=== PATIENT | female | born 1990 | race Caucasian/White ===

== ENCOUNTER 2021-08-17 04:38 | Inpatient (IN) | payer BC ==
[2021-08-17] VITALS (43 sets, daily range): BP systolic 102–144; BP diastolic 51–90; PULSE 63–103; TEMP 97.6–98.6
[~2021-08-17] VITALS: Ht 160 cm; Wt 77.3 kg
--- NOTE | 2021-08-17 06:15 | NUR ---
0615-Recieved bedside shift report from Sarah,BRENDON. Patient denies pain. Reactive FHR. Updated on plan of care and orders to start pit and pen G per GBS unknown. Verbalized understanding and agreeable with plan. 0645-IV to left hand, blood collected and sent to lab per orders. LR infsuing, see EMAR. Pen G started, See EMAR. 0700-Pitocin at 2mu/min per orders see EMAR. Reviewed consents and signed.
[2021-08-17 07:26] LABS: BASO % 0.4 % (0.0-2.0); EOS # 0.1 K/mm3 (0.0-0.7); EOS % 1.4 % (0.0-4.0); GRAN # 6.6 K/mm3 (1.4-6.5); GRAN % 77.9 % (42.2-75.2); HEMOGLOBIN 12.7 g/dl (12.5-16.0); LYMPH % 12.1 % (20.0-51.0); MEAN CELL VOLUME 98 fl (80.0-100.0); MEAN CORPUSCULAR HEMOGLOBIN 35 pg (27-31); MEAN CORPUSCULAR HGB CONC 36 g/dl (33.0-37.0); MEAN PLATELET VOLUME 12.2 fl (7.4-10.4); MONO # 0.6 K/mm3 (0.1-0.6); MONO % 6.9 % (1.7-9.3); PLATELET COUNT 135 K/mm3 (130-400); RED BLOOD COUNT 3.61 M/mm3 (4.10-5.30); REDCELL DISTRIBUTION WIDTH-CV 13.2 % (11.5-14.5)
[2021-08-17 07:30] LABS: HEMATOCRIT 35.2 % (37.0-47.0)
--- NOTE | 2021-08-17 08:30 | NUR ---
0830-Dr. Villarreal on unit in to see patient. No new orders.
--- NOTE | 2021-08-17 10:40 | NUR ---
1040-Ellison to DD, clear yellow urine return. Hortencia care provied. 1140-Repositioned WR with PB. 1150-IV benadryl given per anesthesia orders for itching. 1245-SVE by /+1
--- NOTE | 2021-08-17 13:45 | NUR ---
1345-SVE by Dr. Villarreal Complete and +2 station. 1350-MD begins pushing with patient. 1430-RN assumes pushing with patient. Moves vertex well. 1440-Dr. Villarreal returns to bedside and assumes pushing with patient. Patient continues to have good effort pushing and is moving vertex. 1528-Spontaneous delivery of head attended by Dr. Villarreal. Loose nuchal x1 reduced by MD. Patient proceeds with pushing and immediately delivers viable male . to mothers abdoment. Cord clamped x2 and cut by FOB. Care of assumed by BRENDON Kinsey. Apgars 8/9/9. 1530-Spontaneous delivery of intact placenta by Dr. Villarreal. [facility] massage firm. Lochia WNL. Pitocin bolus per MD order and protocol. First degree laceration repaired by MD. EBL 300ml. Hortencia care provided. Updated on plan of care and safety.
--- NOTE | 2021-08-17 17:57 | NUR ---
0915-Patient requests Epidural. JAIR Rodriguez notified. 0935-Patient sitting upright for epidural placement. MIGNON Rodriguez to patient room. 0947-Test dose administered by JAIR Rodriguez. Patient tolerated well. VSS. Updated on safety and plan of care. 1015-SVE by Dr. Villarreal who is on unit. 2. Repositioned WL with peanut ball.
--- NOTE | 2021-08-17 18:30 | NUR ---
Report recieved at this time. Up to restroom with off going nurse. Whiteboard updated in room. POC reviewed. remains in room. Visitors coming per pt. Informed to not attempt to ambulate without nursing assistance.
--- NOTE | 2021-08-17 18:30 | NUR ---
1830-Patient up to toilet with assist x1 and wheelchair. Voids 400ml, ximena care assisted. Transferred to room 208. Updated on plan of care and safety. Reported off to BRENDON Nichols
[2021-08-18] VITALS: BP 130/78; PULSE 90; TEMP 97.5
[2021-08-18 04:00] VITALS: BP 124/65; PULSE 85; TEMP 98.3
[2021-08-18 07:30] VITALS: BP 108/58; PULSE 81; TEMP 97.6
--- NOTE | 2021-08-18 09:44 | NUR ---
Initial visit; Parents thanked Assistant Clinical Director for offering congratulations and God's blessings for the of their son. Assistant Clinical Director thanked family for choosing our hospital.
[2021-08-18 11:00] VITALS: BP 128/68; PULSE 85; TEMP 97.5
[2021-08-18 16:00] VITALS: BP 132/81; PULSE 89; TEMP 97.3
[2021-08-18 20:45] VITALS: BP 121/74; PULSE 88; TEMP 98.3
[2021-08-19 07:35] VITALS: BP 119/87; PULSE 106; TEMP 98.4
[2021-08-19] MEDS ORDERED: IBU800 M1 PO (10:33)
--- NOTE | 2021-08-19 14:34 | NUR ---
1430DISCHARGE INSTRUCTIONS REVIEWED WITH PATIENT. PATIENT VERBALIZED UNDERSTANDING. PATIENT TO BOARDER STATUS AT THIS TIME.
== END 2021-08-19 14:30 | disposition home or self-care (01) | DRG 806 ==
LOC: LDRO 04:38 → LDR 05:12 → OB 05:12
PROVIDERS: ADMIT Obstetrics & Gynecology
PROC: 10E0XZZ Delivery of Products of Conception, External Approach (ICD-10-PCS; principal; 2021-08-17)
PROC: 0HQ9XZZ Repair Perineum Skin, External Approach (ICD-10-PCS; 2021-08-17)
PROC: 3E033VJ Introduction of Other Hormone into Peripheral Vein, Percutaneous Approach (ICD-10-PCS; 2021-08-17)
DX: O42.913 Preterm premature rupture of membranes, unspecified as to length of time between rupture and onset of labor, third trimester (principal); O99.12 Other diseases of the blood and blood-forming organs and certain disorders involving the immune mechanism complicating childbirth; Z37.0 Single live birth; D69.6 Thrombocytopenia, unspecified; O70.0 First degree perineal laceration during delivery; O69.81X0 Labor and delivery complicated by cord around neck, without compression, not applicable or unspecified; Z3A.36 36 weeks gestation of pregnancy
CPT/HCPCS: J1200; J2540; J2590; J7120

== ENCOUNTER → 2021-09-09 | Outpatient (CLI) | payer BC ==
[~2021-09-09] MED LIST: IBU800 M1 PO
--- NOTE | 2021-09-09 13:48 | NUR ---
Pt, Hortencia Matta, presents to walk-in clinic with 3 week old baby boy, Robbin Matta, and her spouse Jose Matta. Pt desires weight check for Robbin and evaluation. Does not c/o of any particular problem. Robbin was born on [birth year] and weighed 6# 1.0oz (2750 gms). Pt reports on 08/26/21 he weighed 5#11oz at Dr. Nanda Webb's office. Today Robbin weighs 6#4.8oz (2858 gms). Pt places Robbin to her left breast first, he has some trouble staying latched and releases frequently. She is advised to move from cradle hold to football hold and he latches better. There is some fidgetiness noted with his feeding. Pt reports Robbin gets 2-3 bottles daily for convenience and each bottle is 2-3oz of expressed breast milk. She is pumping about the same amounts daily, either after he feeds or in place of a when he gets the bottle. She also states he has qs voids and stools. Yellow breastmilk stool noted at this visit. After his first round at the breast Robbin had a gain of 1.6 oz (44 gms). He was still acting hungry so he was placed back to breast with SNS. He took 12ml formula and and additional 8ml breastmilk, but still was not satisfied so he was provided formula by bottle, taking 1.1oz. Total breastmilk intake was 1.5oz and breastmilk intake was 1.9oz for a grand total of 3.4oz (96 ml). POC: Continue with current /bottle feeding plan. Consider pumping after daytime breastfeedings as time allows to build stored milk supply. Supplement as indicated by Robbin's behavior after . F/U: As desired at walk-in clinic and as scheduled with their doctors. Questions invited and answered.
== END ==
LOC: LAC 13:10
DX: Z39.1 Encounter for care and examination of lactating mother (principal)

== ENCOUNTER 2023-10-20 02:34 | Inpatient (IN) | payer BC ==
[2023-10-20] VITALS (49 sets, daily range): BP systolic 91–150; BP diastolic 53–95; PULSE 66–115; TEMP 97.6–98.1
[~2023-10-20] VITALS: Ht 160 cm; Wt 85.9 kg
[2023-10-20] MEDS ORDERED: LR 1,000 ML IV SCH (03:15)
[2023-10-20] MEDS ORDERED: Penicillin G Potassium 5,000,000 UNITS in NS 100 ML IV ONE (03:15)
[2023-10-20 03:57] LABS: BASO % 0.3 % (0.0-2.0); EOS # 0.1 K/mm3 (0.0-0.7); EOS % 1.3 % (0.0-4.0); GRAN # 6.9 K/mm3 (1.4-6.5); GRAN % 76.6 % (42.2-75.2); HEMOGLOBIN 13.2 g/dl (12.5-16.0); LYMPH # 1.2 K/mm3 (1.2-3.4); LYMPH % 13.3 % (20.0-51.0); MEAN CELL VOLUME 98 fl (80.0-100.0); MEAN CORPUSCULAR HEMOGLOBIN 35 pg (27-31); MEAN CORPUSCULAR HGB CONC 36 g/dl (33.0-37.0); MEAN PLATELET VOLUME 12.1 fl (7.4-10.4); MONO # 0.7 K/mm3 (0.1-0.6); MONO % 7.5 % (1.7-9.3); PLATELET COUNT 141 K/mm3 (130-400); RED BLOOD COUNT 3.77 M/mm3 (4.10-5.30); REDCELL DISTRIBUTION WIDTH-CV 13.2 % (11.5-14.5)
[2023-10-20 03:58] LABS: HEMATOCRIT 36.8 % (37.0-47.0)
[2023-10-20] MEDS ORDERED: ROPivacaine PF 0.2% 200 ML IV ONE (04:48)
[2023-10-20] MEDS ORDERED: Ondansetron 4 MG/2 ML VIAL IV PRN (05:30)
[2023-10-20] MEDS ORDERED: ePHEDrine 50 MG/10 ML VIAL IV PRN (05:30)
[2023-10-20] MEDS ORDERED: diphenhydrAMINE 25 MG CAP PO PRN (05:30)
[2023-10-20] MEDS ORDERED: Naloxone 0.4 MG/ML VIAL IV PRN ×2 (05:30→14:00)
[2023-10-20] MEDS ORDERED: diphenhydrAMINE 50 MG/ML 1 ML VIAL IV PRN (05:30)
[2023-10-20] MEDS ORDERED: Penicillin G Potassium 2,500,000 UNITS in NS 100 ML IV SCH (07:13)
[2023-10-20] MEDS ORDERED: PRENATAL TABLET PO (07:19)
[2023-10-20] MEDS ORDERED: LR & Oxytocin 500 ML IV SCH ×2 (10:00)
[2023-10-20] MEDS ORDERED: Mag/Al Hydrox/Simeth Susp 30 ML CUP PO PRN (14:00)
[2023-10-20] MEDS ORDERED: Measles/Mumps/Rubella Virus Vaccine Live w Diluent 0.5 ML VIAL SQ SCH (14:00)
[2023-10-20] MEDS ORDERED: Acetaminophen 500 MG TAB PO SCH (14:00)
[2023-10-20] MEDS ORDERED: Ibuprofen 800 MG TAB PO SCH (14:00)
[2023-10-20] MEDS ORDERED: oxyCODONE 5 MG TAB PO PRN (14:00)
[2023-10-20] MEDS ORDERED: Witch Hazel 50% Pads Bulk TUB TP PRN (14:00)
[2023-10-20] MEDS ORDERED: Phenylephrine/Mineral Oil/Petrolatum 57 GM TUBE RC PRN (14:00)
[2023-10-20] MEDS ORDERED: Loratadine 10 MG TAB PO PRN (14:00)
[2023-10-20] MEDS ORDERED: Magnes Hydrox (MOM) 80 MG/ML 30 ML CUP PO PRN (14:00)
[2023-10-20] MEDS ORDERED: Sennosides/Docusate 8.6-50 MG TAB PO SCH (17:00)
[2023-10-20] MEDS ORDERED: traZODone 50 MG TAB PO PRN (21:00)
[2023-10-21 00:32] VITALS: BP 132/66; PULSE 99; TEMP 97.4
[2023-10-21 08:00] VITALS: BP 118/68; PULSE 92; TEMP 97.6
[2023-10-21 16:35] VITALS: BP 119/69; PULSE 93; TEMP 97.7
[2023-10-21 20:38] VITALS: BP 122/83; PULSE 90; TEMP 97.8
[2023-10-22 02:00] VITALS: BP 130/78; PULSE 82; TEMP 98
[2023-10-22 07:48] VITALS: BP 130/75; PULSE 84; TEMP 97.7
== END 2023-10-22 14:30 | disposition home or self-care (01) | DRG 807 ==
LOC: LDRO 02:34 → LDR 02:45 → OB 02:45
PROVIDERS: ADMIT Student in an Organized Health Care Education/Training Program
PROC: 10E0XZZ Delivery of Products of Conception, External Approach (ICD-10-PCS; principal; 2023-10-20)
PROC: 0KQM0ZZ Repair Perineum Muscle, Open Approach (ICD-10-PCS; 2023-10-20)
DX: O99.824 Streptococcus B carrier state complicating childbirth (principal); Z37.0 Single live birth; O76 Abnormality in fetal heart rate and rhythm complicating labor and delivery; Z3A.38 38 weeks gestation of pregnancy; O70.1 Second degree perineal laceration during delivery; O69.81X0 Labor and delivery complicated by cord around neck, without compression, not applicable or unspecified
CPT/HCPCS: J2540; J2590; J2795; J7120